=== PATIENT | female | born 1950 | race Caucasian/White ===

== ENCOUNTER 2022-01-24 07:37 | Outpatient (CLI) | payer MEDICARE, OTHER | END 2022-01-24 07:38 | disposition home or self-care (01) | LOC: CSHCT 07:37 | PROVIDERS: ATTEND Neurological Surgery | DX: Z01.818 Encounter for other preprocedural examination (principal); M54.16 Radiculopathy, lumbar region; M47.816 Spondylosis without myelopathy or radiculopathy, lumbar region; M48.061 Spinal stenosis, lumbar region without neurogenic claudication; Z20.822 Contact with and (suspected) exposure to COVID-19 | CPT/HCPCS: 72131; 80048; 87811; 93005; 93010 ==